=== PATIENT | female | born 1995 | race Hispanic/Latino ===

== ENCOUNTER 2023-10-17 09:10 | Emergency (ER) | payer OTHER ==
[~2023-10-17] VITALS: Ht 170.2 cm; Wt 97.7 kg
[2023-10-17 09:11] VITALS: BP 136/80; TEMP 98.1; O2SAT 100
[2023-10-17] MEDS ORDERED: IBUP-1022 PO (09:21)
[2023-10-17] MEDS ORDERED: ACET-1349 PO (09:21)
[2023-10-17] MEDS ORDERED: AMOX875T PO (09:22)
[2023-10-17] MEDS ORDERED: AMOX875T2 PO (11:00)
[2023-10-17] MEDS ORDERED: PERI0.126 PO (11:00)
== END 2023-10-17 11:09 | disposition home or self-care (01) ==
LOC: M ED 09:10
DX: K08.89 Other specified disorders of teeth and supporting structures (principal); Z98.84 Bariatric surgery status; Z79.2 Long term (current) use of antibiotics; Z79.1 Long term (current) use of non-steroidal anti-inflammatories (NSAID); Z79.899 Other long term (current) drug therapy

== ENCOUNTER 2024-01-03 10:10 | Outpatient (CLI) | payer OTHER ==
[~2024-01-03] VITALS: Ht 170.2 cm; Wt 90.9 kg
[~2024-01-03 10:10] MED LIST: ACET-1349 PO; ALBUTEROL SULFATE 2.5MG/0.5ML INH NEB SOLN INH PRN; AMOX875T PO; AMOX875T2 PO; EPINEPHrine INJ 1 MG/ML 1ML AMP IM PRN; IBUP-1022 PO; PERI0.126 PO; diphenhydrAMINE 50MG/ML VIAL IV PRN; methylPREDNISolone 125MG 2ML VIAL IV PRN
[2024-01-03 10:20] VITALS: BP 143/72; O2SAT 100
[2024-01-03] MEDS: IRON SUCROSE 300 MG in NS 250 ML OVER 90 MIN. IV ONE (10:57)
[2024-01-03 12:45] VITALS: BP 135/89; O2SAT 100
== END 2024-01-03 12:48 | disposition home or self-care (01) ==
LOC: M INFU 10:10
PROVIDERS: ATTEND Internal Medicine Hematology
DX: D64.9 Anemia, unspecified (principal)
CPT/HCPCS: 96365; 96366; J1756

== ENCOUNTER 2024-01-31 09:15 | Outpatient (CLI) | payer OTHER ==
[~2024-01-31] VITALS: Ht 170.2 cm; Wt 88.2 kg
[~2024-01-31 09:15] MED LIST changes: +NS (Normal Saline) 0.9% 1,000 ML IV SCH
[2024-01-31] MEDS: IRON SUCROSE 300 MG in NS 250 ML IV ONE (09:15)
[2024-01-31 09:32] VITALS: BP 150/82; O2SAT 100
[2024-01-31 10:54] VITALS: BP 146/81; O2SAT 100
== END 2024-01-31 12:59 | disposition home or self-care (01) ==
LOC: M INFU 09:15
PROVIDERS: ATTEND Internal Medicine Hematology
DX: D64.9 Anemia, unspecified (principal)
CPT/HCPCS: 96365; 96366; J1756

== ENCOUNTER → 2024-02-21 | Outpatient (CLI) | payer OTHER ==
[~2024-02-21] VITALS: Ht 170.2 cm; Wt 88.2 kg
[2024-02-21 09:09] VITALS: BP 134/82; O2SAT 100
[2024-02-21] MEDS: IRON SUCROSE 300 MG in NS 250 ML OVER 90 MIN. IV ONE (09:41)
[2024-02-21 11:25] VITALS: BP 115/71; O2SAT 99
== END ==
LOC: M INFU 08:55
PROVIDERS: ATTEND Internal Medicine Hematology
DX: D64.9 Anemia, unspecified (principal)
CPT/HCPCS: 96365; 96366; J1756